=== PATIENT | male | born 1990 | race Caucasian/White ===

== ENCOUNTER 2025-03-23 08:33 | Emergency (ER) | payer OTHER, SELFPAY ==
--- OUTSIDE RECORDS SUMMARY | 2025-03-23 08:48 | XMS_ITS | Clinical Summary ---
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 20 Tab 9 Active Additional Information Patient not taking.Reported on 03/23/2024 albuterol (PROAIR HFA) 108 (90 Base) MCG/ACT Aerosol SolutionIndicat ions:Shortness of breath,Bronchit is take 2 Puffs by inhalation every 4 hours as needed for Wheezing or Cough. 1 Inhaler 9 Active Additional Information Patient not taking.Reported on 03/23/2024 Active Problems No known active problems Family History Medical History Relation Name Comments No Known Problems Father No Known Problems Mother Relation Name Status Comments Father Alive Mother Alive Social History Tobacco Use Types Packs/Day Years Used Date Smoking Tobacco: Never Smokeless Tobacco: Current Chew Alcohol Use Standard Drinks/Week Comments Yes 0 (1 standard drink = 0.6 oz pur e alcohol) Sexually Active Control Partners Comments Yes Sex and Gender Information Value Date Recorded Sex Assigned at Not on file Legal Sex Male 8:40 PM CDT Gender Identity Not on file Sexual Orientation Not on file Last Filed Vital Signs Vital Sign Reading Time Taken Comments Blood Pressure 130/66 06/21/2024 9:02 AM CDT Pulse 69 06/21/2024 7:55 AM CDT Temperature 36.5 C (97.7 F) 06/21/2024 7:55 AM CDT Respiratory Rate 16 06/21/2024 7:55 AM CDT Oxygen Saturation 100% 06/21/2024 7:55 AM CDT Inhaled Oxygen Concentration - - Weight 86.2 kg (190 lb) 06/21/2024 7:55 AM CDT Height 175.3 cm (5' 9 ) 06/21/2024 7:55 AM CDT Body Mass Index 28.06 06/21/2024 7:55 AM CDT Plan of Treatment Health Maintenance Due Date Last Done Comments Hepatitis C Virus (HCV) Screening 1992 TdaP Immunization 1992 Influenza Immunization (#1) 2024 09/05/2003 SARS-COV-2 Immunization ( season) 2024 Respiratory Syncytial Virus (RSV) Immunization (Adult) (1 - 1-dose 75+ series) 2067 Rotavirus Immunization Aged Out 02/03/2010 No lo nger eligible based on patient's age to complete this topic DTaP/Tdap/Td Immunization Discontinued 2009, 02/03/2010, 07/24/2003, Additional history exists Hepatitis B Immunization Completed 010, 11/04/2009, 03/05/1995, Additional history exists Pneumococcal Immunization Combined Aged Out 05/08/2010, 02/03/2010 No longer eligibl e based on patient's age to complete this topic Meningococcal Immunization (ACWY) Aged Out No longer eligible based on patient's age to complete this topic Insurance [facility] Care Teams 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
[2025-03-23 08:49] VITALS: BP 147/102; PULSE 96; RESP 16; TEMP 36.9; O2SAT 100
[2025-03-23 08:54] VITALS: BP 147/103
--- NOTE | 2025-03-23 08:58 | ED_ITS ---
HPI - Skin/Abscess/Foreign Bdy General Chief complaint: Skin/Abscess/Foreign Body Stated complaint: swollen right eye Time Seen by Provider: 03/23/25 08:58 Source: patient and RN notes reviewed Mode of arrival: ambulatory Limitations: no limitations History of Present Illness HPI narrative: 34-year-old male presents with concern for rash on his torso, arms it has been there for about 2 weeks, he reports he was exposed to poison nori. He has been using poison nori wash on the area. He reports he had a reexposure and now is having a rash, swelling on his face and around his right eye. Reports a few itchy spots on his upper lip. He denies lip swelling, tongue swelling, trouble breathing. He has not used any poison nori wash on his face. He denies vision changes, drainage from the eye, eye pain. He denies facial pain or pain around the eye. MD complaint: rash Related Data Allergies Allergy/AdvReac Type Severity Reaction Status Date / Time No Known Allergies Allergy Verified 03/23/25 08:53 Review of Systems Review of Systems: CONSTITUTIONAL: Denies malaise, chills, sweats, or fever. EYES: Denies redness, or discharge. ENT: Denies rhinorrhea, congestion, swollen lips, swollen tongue CARDIOVASCULAR: Denies chest pain, palpitations, or edema. RESPIRATORY: Denies cough or dyspnea. GASTROINTESTINAL: Denies abdominal pain, nausea, vomiting SKIN: Reports itchy rash on his arms, torso, face MUSCULOSKELETAL: Denies joint pain or myalgia. NEUROLOGIC: Denies headache. All systems reviewed & are unremarkable except as noted in HPI and below PMFSH Comments At time of signature, agree with nursing past medical, surgical, social and family history. There is no relevant family history pertinent to the presenting complaint Exam Narrative: GENERAL: Well-appearing, well-nourished, and in no acute distress. HEAD: Normocephalic, atraumatic. EYES: PERRLA, conjunctivae clear and sclera clear, and EOMI. No drainage ENT: Mucous membranes moist. Oropharynx without edema, erythema or lesions. NECK: Supple. No lymphadenopathy CHEST: Clear to auscultation. No respiratory distress. HEART: Regular rate and rhythm. SKIN: Warm, dry. Scab linear patches of papules noted to the arms. Generalized raised erythematous rash noted to the face mainly localized to the right side and around the right eye with lower eyelid edema. NEURO: Alert and oriented x3. PSYCH: Normal mood and affect Course Course Emergency Course: Patient is aware of diagnosis, understands and agrees to treatment plan. Anticipatory guidance given. Patient agrees to follow-up as directed and is aware of reasons to seek care at the emergency department. Portions of this record may have been created with voice recognition software Level of Care: Express Care Visit Vital Signs Vital signs: Vital Signs Temperature 98.5 F 03/23/25 08:49 Pulse Rate 96 03/23/25 08:49 Respiratory Rate 16 03/23/25 08:49 Blood Pressure 147/102 H 03/23/25 08:49 Pulse Oximetry 100 03/23/25 08:49 Oxygen Delivery Room Air 03/23/25 08:49 Temperature 98.5 F 03/23/25 08:49 Pulse Rate 96 03/23/25 08:49 Respiratory Rate 16 03/23/25 08:49 Blood Pressure 107/103 H 03/23/25 08:54 Pulse Oximetry 100 03/23/25 08:49 Oxygen Delivery Room Air 03/23/25 08:49 Reviewed. MDM - Skin/Abscess/Foreign Bdy MDM Narrative Medical decision making narrative: Does not appear at this time to be erythema multiforme, bullous, SJS, TEN; no evidence at this time to suggest RMSF, endocarditis or Lyme disease; patient looks well, nontoxic and is tolerating oral intake; no neurologic signs or symptoms; no headache, photophobia or neck pain; afebrile; appropriate for initial outpatient treatment; discussed the importance of follow-up, patient agrees; question, viral exanthema, contact dermatitis, allergic dermatitis, eczema, urticaria, cellulitis, periorbital cellulitis. No soft palate or uvula edema, no tongue, lip edema or other mucosal involvement, no respiratory compromise, no stridor, no wheezing, no wheezing, no history of syncope, no hypotension, no nausea, vomiting, or diarrhea. Instructed patient to go to nearest ER immediately for any worsening symptoms including but not limited to: fever, spreading rash, pain, sore throat, headache, dizziness, chest pain, trouble breathing, or any symptoms concerning to the patient. Critical Care Time Critical Care Time Critical Care Time: No Discharge Plan Discharge Clinical Impression: Contact dermatitis Patient Disposition: Home Condition: Stable Instructions: Poison Nori (ED) Additional Instructions: Prevention is always better than treatment. Learn to identify poison nori, oak, and sumac and avoid it. Wear long sleeves, long pants, shoes, and socks. If you touched the plant, try to keep your hands away from your eyes, mouth, and face. Wash the skin thoroughly with soap and cool water as soon as possible. Scrub under the fingernails with a brush to prevent spreading of the resin to other parts of the body by touching or scratching. Remember to wash any clothing with soap and hot water as the resin can persist for many months and cause further dermatitis. You should NOT use antihistamine creams or lotions, anesthetic creams containing benzocaine, or antibiotic creams containing neomycin or bacitracin to the skin. These creams or ointments could make the rash worse. Antihistamines do not help to relieve itching caused by poison nori dermatitis. For some people, adding oatmeal to a bath, applying cool wet compresses, and applying calamine lotion may help to relieve itching. Once the blisters begin weeping fluid, astringents containing aluminum acetate (Burow's solution) and Domeboro may help to relieve the rash. IF symptoms get worse to follow up with your primary care provider or seek ER visit if you developing difficulty breathing, weakness, dizziness. Patient Language: Montenegrin Prescriptions: New prednisone 10 mg tablet 10 mg PO DAILY Qty: 42 0RF Rx Instructions: 6 tabs days 1-2, 5 tabs days 3-4, 4 tabs days 5-6, 3 tabs days 7-8, 2 tabs days 9-10, 1 tab days 11-12 Follow-up/Referrals: PHYSICIAN,FLORICULTURE TEACHER [Primary Care Provider] - Time of Disposition: 09:10
== END 2025-03-23 09:15 | disposition home or self-care (01) ==
PROVIDERS: Emergency Provider Nurse Practitioner
DX: L25.9 Unspecified contact dermatitis, unspecified cause (principal)
CPT/HCPCS: 99203; G0463